=== PATIENT | female | born 1950 | race Caucasian/White ===

== ENCOUNTER → 2017-09-09 | Outpatient (CLI) | payer OTHER, MEDICARE | LOC: HYPER 06:58 | DX: S91.104A Unspecified open wound of right lesser toe(s) without damage to nail, initial encounter (principal); L03.032 Cellulitis of left toe; R60.0 Localized edema; F32.9 Major depressive disorder, single episode, unspecified; Z85.828 Personal history of other malignant neoplasm of skin; Z90.710 Acquired absence of both cervix and uterus; Z87.891 Personal history of nicotine dependence; Z72.89 Other problems related to lifestyle; X58.XXXA Exposure to other specified factors, initial encounter; Y93.89 Activity, other specified; Y92.89 Other specified places as the place of occurrence of the external cause; Y99.8 Other external cause status ==

== ENCOUNTER → 2017-10-14 | Outpatient (CLI) | payer OTHER, MEDICARE | LOC: HYPER 07:09 | DX: L03.032 Cellulitis of left toe (principal); G62.9 Polyneuropathy, unspecified; M81.0 Age-related osteoporosis without current pathological fracture; Z85.44 Personal history of malignant neoplasm of other female genital organs; Z85.41 Personal history of malignant neoplasm of cervix uteri; Z90.710 Acquired absence of both cervix and uterus; Z87.891 Personal history of nicotine dependence; Z72.89 Other problems related to lifestyle ==

== ENCOUNTER → 2017-11-15 | Outpatient (CLI) | payer OTHER, MEDICARE ==
[~2017-11-15] MED LIST: ATIVAN0.5 MG; AUGMENTIN 875-1 EACH PO; CENTRUM SILVER1 EAC4 PO; CYMBALTA30 MG PO; LASIX 40 MG TAB40 M2 PO; MIRAPEX 0.250.25 M1; MOBIC7.5 MG; NEURONTIN 300300 M1; OMEPRAZOLE; OXYCONTIN20 M1; PERCOCET 7.5-31 EACH; PRINIVIL10 MG PO; SYNTHROID100 MCG; VITAMIN B-650 M1; VITAMIN D1000 UNI1; VITAMINC500
== END ==
LOC: HYPER 08:16
DX: S91.105D Unspecified open wound of left lesser toe(s) without damage to nail, subsequent encounter (principal); L03.032 Cellulitis of left toe; R60.0 Localized edema; M81.0 Age-related osteoporosis without current pathological fracture; Z90.710 Acquired absence of both cervix and uterus; Z87.891 Personal history of nicotine dependence; Z72.89 Other problems related to lifestyle; Z85.44 Personal history of malignant neoplasm of other female genital organs; X58.XXXD Exposure to other specified factors, subsequent encounter

== ENCOUNTER → 2017-11-22 | Outpatient (CLI) | payer OTHER, MEDICARE | LOC: HYPER 08:02 | DX: S91.105D Unspecified open wound of left lesser toe(s) without damage to nail, subsequent encounter (principal); M81.0 Age-related osteoporosis without current pathological fracture; G62.9 Polyneuropathy, unspecified; G89.4 Chronic pain syndrome; Z87.891 Personal history of nicotine dependence; Z72.89 Other problems related to lifestyle; Z90.710 Acquired absence of both cervix and uterus; Z85.44 Personal history of malignant neoplasm of other female genital organs; Z85.41 Personal history of malignant neoplasm of cervix uteri; X58.XXXD Exposure to other specified factors, subsequent encounter ==

== ENCOUNTER 2017-11-27 06:41 | Inpatient (IN) | payer OTHER, MEDICARE ==
[~2017-11-27] VITALS: Ht 167.6 cm; Wt 136.1 kg
--- NOTE | ~2017-11-27 | HC ---
[facility] [place] [address] CONSULTATION Name: EMILE FARRIS Room #: 429-P ADM IN M.R.#: [id number] Admission: 11/27/17 Attend Phys: Trevor Vincent DO Discharge: Date of : 54 Report #: [id number] THIS REPORT FOR: //name// CC: Trevor Alcantara REASON FOR CONSULTATION: I was asked to evaluate concerning left foot soft tissue infection in the setting of metastatic cervical cancer and chemotherapy. HISTORY OF PRESENT ILLNESS: The patient was a 67-year old diagnosed with cervical cancer, who has been on chemotherapy for the last month. She has longstanding lymphedema to her lower extremities. She has peripheral neuropathy. The chemotherapy has made these issues worse. She developed an ulcer over the dorsum of her left distal foot and toes after wearing had a new pair of shoes. This has worsened and has failed to improve with oral antibiotic therapy. Outside cultures had revealed enterococcus. She was on penicillin without benefit. No fever, chills or sweats. She has a significant amount of pain in the foot. ALLERGIES: None known. MEDICATIONS: As noted on her MAR, now on vancomycin. PAST MEDICAL HISTORY: Cervical cancer with mets to the abdomen, chest, lungs, status post splenectomy, now on chemotherapy; peripheral neuropathy; lymphedema; hypothyroidism; hypertension and lumbar diskectomy. FAMILY HISTORY: Heart disease, cancer and diabetes. SOCIAL HISTORY: Past smoker. No significant alcohol intake. REVIEW OF SYSTEMS: No cough, sputum, nausea, vomiting or diarrhea. No dysuria. PHYSICAL EXAMINATION: VITAL SIGNS: Afebrile, hemodynamically stable. GENERAL: She is alert and cooperative and pleasant. She was under the influence of pain medication and would drift off to sleep when not confronted. She was obese. She had 3+ lower extremity edema. LUNGS: Clear. HEART: Regular. ABDOMEN: Obese, soft and nontender. EXTREMITIES: The right lower extremity had a multilayer compression wrap in place. The toes were warm with good capillary refill. Left lower extremity had wound over the dorsal aspect of her distal foot and toes. There was serous purulent drainage. There was erythema to the dorsum of her foot, which extended up her pretibial skin. Pulses were adequate. [place] [address] CONSULTATION Name: EMILE FARRIS Room #: [address] [place] [address] IN ..#: [id number] Admission: 11/27/17 Attend Phys: Trevor Vincent DO Discharge: Date of : 54 Report #: [id number] dorsum of her foot. LABORATORY STUDIES: Sodium 143, potassium 3.8, bicarbonate 30 and creatinine 1. Liver function test normal. Hemoglobin 11.7; platelet count 438,000 and white count 15.1. Urinalysis unremarkable. Sedimentation rate 68. Blood cultures are pending. Wound culture pending. 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 Most recent culture has revealed enterococcus. RECOMMENDATIONS: I would recommend continuing wound care and more aggressive elevation along with diuretic therapy. Her antibiotics will be continued with Zosyn and vancomycin, pending repeat culture results. If no evidence of MRSA or pseudomonas, then we will plan to narrow her antibiotic coverage within the next 24-48 hours. <ELECTRONICALLY SIGNED> By: Donny Bloom MD 11/29/17 1500 [id number] Donny Bloom MD /nt
--- NOTE | ~2017-11-27 | HC ---
[facility] [place] [address] CONSULTATION Name: EMILE FARRIS Room #: 429-P ADM IN M.R.#: [id number] Admission: 11/27/17 Attend Phys: Trevor Vincent DO Discharge: Date of : 54 Report #: [id number] THIS REPORT FOR: //name// CC: Trevor Pearce Purvi Quinton DATE OF SERVICE: 11/28/2017 CHIEF COMPLAINT: Left foot ulceration with cellulitis. HISTORY OF PRESENT ILLNESS: This is a 67-year-old female patient with whom we are familiar from outpatient evaluation in the wound center. She has had a history of cervical cancer, status post chemotherapy and radiation and then subsequent metastases to the pancreas and rib. She was seen earlier this fall for some ulceration of her toes. She was treated with topical Silvadene and gradually improved to the point where this was resolved. However, after the first of the year, she developed increasing ulceration, pain, drainage and swelling and she was seen as an outpatient. Cultures demonstrated heavy growth of Enterococcus, sensitive to both penicillin and vancomycin. When I spoke with her last week in the clinic, she preferred to try outpatient therapy first. We put her on penicillin 500 mg q.i.d. After 5 days, it was noted that she was not improving and it was felt hospitalization would be warranted. She has been admitted to the hospital. The wound started with daily dressing changes as well as intravenous vancomycin. The patient states she has continued pain in her foot at this time. PAST MEDICAL HISTORY: Positive for hypertension and cellulitis as well as cervical cancer. She has been getting chemotherapy. Her last round of chemo was the first week of 10/2017. Past medical history once again positive for hypertension, hypothyroidism, lymphedema, cervical cancer with metastases, previous splenectomy and peripheral neuropathy. MEDICATIONS: Include lisinopril, furosemide, levothyroxine, cholecalciferol, Mirapex, Mobic, Percocet, OxyContin, Neurontin, Ativan, omeprazole, pyridoxine, vitamin C, Centrum Silver and Cymbalta. SOCIAL HISTORY: Positive for having smoked cigarettes, one pack per day for 30 years. She quit over 1 year ago. No significant alcohol use. She is and accompanied by her . REVIEW OF SYSTEMS: At this time: CONSTITUTIONAL: The patient denies fever, chills or weight loss. NEUROLOGIC: The patient denies focal weakness, numbness or tingling. EYES: The patient denies visual changes, redness or drainage. ENT: The patient denies earache, nasal [place] [address] CONSULTATION Name: EMILE FARRIS Room #: 429-P [facility] IN M.R.#: [id number] Admission: 11/27/17 Attend Phys: Trevor Vincent DO Discharge: Date of : 54 Report #: [id number] CARDIOVASCULAR: The patient denies chest pain, palpitations or diaphoresis. PULMONARY: The patient denies cough or shortness of breath. GASTROINTESTINAL: The patient denies nausea, vomiting, diarrhea or abdominal pain. ORTHOPEDIC: The patient does complain of pain, swelling and drainage from her left foot, with increasing erythema. Other systems in a 12-point review of systems are negative. PHYSICAL EXAMINATION: VITAL SIGNS: At this time include pulse rate 87, respiratory rate of 18, blood pressure 99/55 and temperature 98.7. GENERAL: This is a chronically ill-appearing female patient, who appears to be in minimal distress. HEENT: Head normocephalic. Nose and throat clear. LUNGS: Clear. ABDOMEN: Soft. Bowel sounds present. EXTREMITIES: Demonstrate palpable pulses. She has 2+ to 3+ edema to both lower extremities. She has significant ulceration to the dorsal aspects and interdigital spaces of the toes of her left foot. There is extensive erythema that extends from her toes on the dorsum of her foot and her distal lower leg. The erythema and ulceration actually seems somewhat worse today than yesterday, even despite intravenous antibiotic therapy. LABORATORY DATA: Sodium 143, potassium 3.9, chloride 107, CO2 of 30, BUN 17, creatinine 1.0 and glucose of 88. White blood cell count 15.1, hemoglobin 11.7, hematocrit of 36.0 and platelet count 438,000. Once again, outpatient cultures demonstrate heavy growth of Enterococcus sensitive to penicillin and vancomycin. CLINICAL IMPRESSION: 1. Ulceration and cellulitis, left lower extremity. 2. Lymphedema, bilateral lower extremities. 3. History of cervical carcinoma with abdominal metastases. RECOMMENDATIONS: At this point in time, we will continue with intravenous vancomycin. Due to the fact that it is not improved with 24 hours of intravenous antibiotic therapy, I have asked Dr. Donny Bloom from Infectious Disease service to see her as well. We will recommend topical Silvadene and morphine with topical lidocaine for pain. We will add pulse lavage if she can tolerate it. All questions have been answered. <ELECTRONICALLY SIGNED> By: Bassam Pearce MD 12/01/17 0810 [id number] Bassam Pearce MD /nt
[2017-11-27 15:40] VITALS: BP 128/68
[2017-11-27 15:54] LABS: HEMOGLOBIN 11.7 gm/dL (12.0-15.0); MCH 29.4 pg (26.0-34.0); MCHC 32.4 g/dL (28.0-37.0); MCV 90.7 fL (80.0-100.0); PLATELET COUNT 438 thou/uL (150-400); RBC 3.96 mil/uL (4.20-5.00); RDW 17.9 % (10.5-14.5); WBC 15.1 thou/uL (4.0-11.0)
[2017-11-27 16:10] LABS: CALCIUM 9.4 mg/dL (8.5-10.1); POTASSIUM 3.8 mmol/L (3.5-5.1)
[2017-11-27 16:14] LABS: ABSOLUTE NEUTROPHILS 11.3 thou/uL (1.4-8.2); ANISOCYTOSIS 1+
[2017-11-27 16:21] LABS: ALBUMIN 3.4 g/dL (3.4-5.0); TOTAL BILIRUBIN 0.2 mg/dL (<0.1-1.0)
[2017-11-27] MEDS ORDERED: PRINIVIL10 MG PO (17:59)
[2017-11-27] MEDS ORDERED: LASIX 40 MG TAB40 M2 PO (18:00)
[2017-11-27] MEDS ORDERED: SYNTHROID100 MCG (18:04)
[2017-11-27] MEDS ORDERED: VITAMIN D1000 UNI1 (18:05)
[2017-11-27] MEDS ORDERED: MIRAPEX 0.250.25 M1 (18:09)
[2017-11-27] MEDS ORDERED: MOBIC7.5 MG (18:10)
[2017-11-27] MEDS ORDERED: PERCOCET 7.5-31 EACH (18:12)
[2017-11-27] MEDS ORDERED: OXYCONTIN20 M1 (18:13)
[2017-11-27] MEDS ORDERED: NEURONTIN 300300 M1 (18:14)
[2017-11-27] MEDS ORDERED: ATIVAN0.5 MG (18:16)
[2017-11-27] MEDS ORDERED: OMEPRAZOLE (18:19)
[2017-11-27] MEDS ORDERED: VITAMIN B-650 M1 (18:20)
[2017-11-27] MEDS ORDERED: VITAMINC500 (18:22)
[2017-11-27] MEDS ORDERED: CENTRUM SILVER1 EAC4 PO (18:24)
[2017-11-27] MEDS ORDERED: CYMBALTA30 MG PO (18:25)
[2017-11-27 20:14] VITALS: BP 123/72
[2017-11-28 01:34] LABS: URINE BILIRUBIN NEGATIVE (Negative); URINE BLOOD NEGATIVE (Negative); URINE CLARITY CLEAR; URINE COLOR YELLOW; URINE GLUCOSE-RANDOM* NEGATIVE (Negative); URINE KETONES NEGATIVE (Negative); URINE LEUKOCYTES NEGATIVE (Negative); URINE NITRITE NEGATIVE (Negative); URINE PROTEIN (DIPSTICK) NEGATIVE (Negative); URINE SPECIFIC GRAVITY 1.025 (1.005-1.035); URINE UROBILINOGEN 0.2 E.U./dl (0.2-1.0)
[2017-11-28 03:32] VITALS: BP 86/45; BP 99/55
[2017-11-28 06:23] LABS: CALCIUM 9.2 mg/dL (8.5-10.1); POTASSIUM 3.8 mmol/L (3.5-5.1)
[2017-11-28 19:45] VITALS: BP 111/55
[2017-11-29 04:07] VITALS: BP 104/54
[2017-11-29 05:36] LABS: ABSOLUTE NEUTROPHILS 7.3 thou/uL (1.4-8.2); BASOPHILS 0.9 % (0.0-2.0); EOSINOPHILS 7.1 % (0.0-3.0); HEMATOCRIT 34.1 % (37.0-47.0); HEMOGLOBIN 10.9 gm/dL (12.0-15.0); LYMPHOCYTES 18.7 % (24.0-44.0); MCH 29.3 pg (26.0-34.0); MCHC 32.1 g/dL (28.0-37.0); MCV 91.5 fL (80.0-100.0); MONOCYTES 8.1 % (1.0-8.0); PLATELET COUNT 409 thou/uL (150-400); POLYS 65.2 % (36.0-66.0); RBC 3.73 mil/uL (4.20-5.00); RDW 17.9 % (10.5-14.5); WBC 11.1 thou/uL (4.0-11.0)
[2017-11-29 05:53] LABS: CALCIUM 9.7 mg/dL (8.5-10.1); CREATININE 1.1 mg/dL (0.6-1.0); POTASSIUM 4.1 mmol/L (3.5-5.1)
[2017-11-29 08:30] VITALS: BP 109/53
[2017-11-29 15:50] VITALS: BP 98/44
[2017-11-29 21:21] VITALS: BP 111/54
[2017-11-30 03:21] VITALS: BP 118/68
[2017-11-30 03:36] LABS: ABSOLUTE NEUTROPHILS 8.2 thou/uL (1.4-8.2); BASOPHILS 1.1 % (0.0-2.0); EOSINOPHILS 5.8 % (0.0-3.0); HEMATOCRIT 31.7 % (37.0-47.0); HEMOGLOBIN 10.4 gm/dL (12.0-15.0); LYMPHOCYTES 15.2 % (24.0-44.0); MCH 29.6 pg (26.0-34.0); MCHC 32.7 g/dL (28.0-37.0); MCV 90.5 fL (80.0-100.0); MONOCYTES 9.5 % (1.0-8.0); PLATELET COUNT 395 thou/uL (150-400); POLYS 68.4 % (36.0-66.0); RBC 3.51 mil/uL (4.20-5.00); RDW 17.4 % (10.5-14.5); WBC 11.9 thou/uL (4.0-11.0)
[2017-11-30 03:48] LABS: CALCIUM 8.9 mg/dL (8.5-10.1); CREATININE 1.1 mg/dL (0.6-1.0); POTASSIUM 3.8 mmol/L (3.5-5.1)
[2017-11-30 07:40] VITALS: BP 104/47
[2017-11-30 15:10] VITALS: BP 118/61
[2017-11-30 20:30] VITALS: BP 124/78
[2017-12-01 04:30] VITALS: BP 127/72
[2017-12-01 08:00] VITALS: BP 121/67
[2017-12-01 16:00] VITALS: BP 122/67
[2017-12-01 20:25] VITALS: BP 124/71
[2017-12-02 04:33] VITALS: BP 117/60
[2017-12-02 07:18] LABS: ABSOLUTE NEUTROPHILS 8.2 thou/uL (1.4-8.2); BASOPHILS 1.4 % (0.0-2.0); EOSINOPHILS 6.8 % (0.0-3.0); HEMATOCRIT 33.1 % (37.0-47.0); HEMOGLOBIN 10.5 gm/dL (12.0-15.0); LYMPHOCYTES 14.5 % (24.0-44.0); MCH 29.1 pg (26.0-34.0); MCHC 31.7 g/dL (28.0-37.0); MCV 91.7 fL (80.0-100.0); MONOCYTES 8.4 % (1.0-8.0); PLATELET COUNT 413 thou/uL (150-400); POLYS 68.9 % (36.0-66.0); RBC 3.61 mil/uL (4.20-5.00); RDW 17.7 % (10.5-14.5); WBC 11.9 thou/uL (4.0-11.0)
[2017-12-02 07:43] LABS: CALCIUM 9.2 mg/dL (8.5-10.1); CREATININE 1.1 mg/dL (0.6-1.0); POTASSIUM 3.5 mmol/L (3.5-5.1)
[2017-12-02 07:55] VITALS: BP 102/59
[2017-12-02 15:40] VITALS: BP 113/48
[2017-12-02 20:34] VITALS: BP 130/76
[2017-12-02 21:45] VITALS: BP 130/76
[2017-12-03 04:39] VITALS: BP 120/62
[2017-12-03 05:55] LABS: ABSOLUTE NEUTROPHILS 9.4 thou/uL (1.4-8.2); BASOPHILS 0.9 % (0.0-2.0); EOSINOPHILS 5.6 % (0.0-3.0); HEMATOCRIT 33.6 % (37.0-47.0); HEMOGLOBIN 10.8 gm/dL (12.0-15.0); LYMPHOCYTES 14.7 % (24.0-44.0); MCH 29.6 pg (26.0-34.0); MCHC 32.1 g/dL (28.0-37.0); MONOCYTES 7.1 % (1.0-8.0); PLATELET COUNT 432 thou/uL (150-400); POLYS 71.7 % (36.0-66.0); RBC 3.65 mil/uL (4.20-5.00); RDW 17.7 % (10.5-14.5); WBC 13.1 thou/uL (4.0-11.0)
[2017-12-03 08:30] VITALS: BP 126/67
[2017-12-03] MEDS ORDERED: AUGMENTIN 875-1 EACH PO (08:44)
[2017-12-03 09:01] VITALS: BP 120/62
[2017-12-03 10:50] VITALS: BP 120/62
[2017-12-03 13:33] VITALS: BP 120/62
[2017-12-03 14:34] VITALS: BP 120/62
== END 2017-12-03 14:45 | disposition home health service (06) | DRG 872 ==
LOC: HYPER 06:41 → 4E 15:02 → ENTRNSPT 12-03 14:32 → EDTRNSPTSTS 12-03 14:37 → 4E 12-03 14:45
PROVIDERS: Family Medicine; Nurse Practitioner
DX: A41.9 Sepsis, unspecified organism (principal); L03.116 Cellulitis of left lower limb; Z68.42 Body mass index [BMI] 45.0-49.9, adult; L97.529 Non-pressure chronic ulcer of other part of left foot with unspecified severity; E03.9 Hypothyroidism, unspecified; I10 Essential (primary) hypertension; E66.9 Obesity, unspecified; G62.9 Polyneuropathy, unspecified; G89.29 Other chronic pain; M54.9 Dorsalgia, unspecified; R91.1 Solitary pulmonary nodule; B35.3 Tinea pedis; B95.2 Enterococcus as the cause of diseases classified elsewhere; Z90.710 Acquired absence of both cervix and uterus; Z87.891 Personal history of nicotine dependence; Z79.899 Other long term (current) drug therapy; Z85.41 Personal history of malignant neoplasm of cervix uteri; Z92.21 Personal history of antineoplastic chemotherapy; Z90.81 Acquired absence of spleen; Z82.49 Family history of ischemic heart disease and other diseases of the circulatory system; Z83.3 Family history of diabetes mellitus; Z80.8 Family history of malignant neoplasm of other organs or systems
CPT/HCPCS: 10783

== ENCOUNTER → 2017-12-09 | Outpatient (CLI) | payer OTHER, MEDICARE | LOC: HYPER 06:59 | DX: L03.032 Cellulitis of left toe (principal); G62.9 Polyneuropathy, unspecified; M19.90 Unspecified osteoarthritis, unspecified site; Z87.891 Personal history of nicotine dependence; Z72.89 Other problems related to lifestyle; Z90.710 Acquired absence of both cervix and uterus; Z85.44 Personal history of malignant neoplasm of other female genital organs; Z85.89 Personal history of malignant neoplasm of other organs and systems ==

== ENCOUNTER → 2017-12-23 | Outpatient (CLI) | payer OTHER, MEDICARE | LOC: HYPER 06:45 | DX: S91.105D Unspecified open wound of left lesser toe(s) without damage to nail, subsequent encounter (principal); R60.0 Localized edema; L03.032 Cellulitis of left toe; M81.0 Age-related osteoporosis without current pathological fracture; Z85.828 Personal history of other malignant neoplasm of skin; Z90.710 Acquired absence of both cervix and uterus; Z87.891 Personal history of nicotine dependence; Z72.89 Other problems related to lifestyle; X58.XXXD Exposure to other specified factors, subsequent encounter ==

== ENCOUNTER → 2017-12-31 | Outpatient (CLI) | payer OTHER, MEDICARE | LOC: HYPER 06:54 | DX: S91.105D Unspecified open wound of left lesser toe(s) without damage to nail, subsequent encounter (principal); M81.0 Age-related osteoporosis without current pathological fracture; G62.9 Polyneuropathy, unspecified; Z85.89 Personal history of malignant neoplasm of other organs and systems; Z87.891 Personal history of nicotine dependence; Z72.89 Other problems related to lifestyle; Z90.710 Acquired absence of both cervix and uterus; Z85.44 Personal history of malignant neoplasm of other female genital organs; X58.XXXD Exposure to other specified factors, subsequent encounter ==

== ENCOUNTER → 2018-01-13 | Outpatient (CLI) | payer OTHER, MEDICARE | LOC: HYPER 06:54 | DX: S91.105D Unspecified open wound of left lesser toe(s) without damage to nail, subsequent encounter (principal); M81.0 Age-related osteoporosis without current pathological fracture; G62.9 Polyneuropathy, unspecified; G89.4 Chronic pain syndrome; Z87.891 Personal history of nicotine dependence; Z72.89 Other problems related to lifestyle; Z85.41 Personal history of malignant neoplasm of cervix uteri; Z90.710 Acquired absence of both cervix and uterus; X58.XXXD Exposure to other specified factors, subsequent encounter ==

== ENCOUNTER → 2018-01-27 | Outpatient (CLI) | payer OTHER, MEDICARE | LOC: HYPER 06:47 | DX: S91.105D Unspecified open wound of left lesser toe(s) without damage to nail, subsequent encounter (principal); L03.032 Cellulitis of left toe; R60.0 Localized edema; Z85.44 Personal history of malignant neoplasm of other female genital organs; Z85.828 Personal history of other malignant neoplasm of skin; Z90.710 Acquired absence of both cervix and uterus; Z87.891 Personal history of nicotine dependence; Z72.89 Other problems related to lifestyle; X58.XXXD Exposure to other specified factors, subsequent encounter ==

== ENCOUNTER → 2018-02-10 | Outpatient (CLI) | payer OTHER, MEDICARE | LOC: HYPER 06:59 | DX: S91.105D Unspecified open wound of left lesser toe(s) without damage to nail, subsequent encounter (principal); M81.0 Age-related osteoporosis without current pathological fracture; G62.9 Polyneuropathy, unspecified; Z90.710 Acquired absence of both cervix and uterus; Z85.44 Personal history of malignant neoplasm of other female genital organs; Z87.891 Personal history of nicotine dependence; X58.XXXD Exposure to other specified factors, subsequent encounter ==

== ENCOUNTER → 2018-02-24 | Outpatient (CLI) | payer OTHER, MEDICARE | LOC: HYPER 06:53 | DX: S91.105D Unspecified open wound of left lesser toe(s) without damage to nail, subsequent encounter (principal); L03.032 Cellulitis of left toe; R60.0 Localized edema; Z85.44 Personal history of malignant neoplasm of other female genital organs; Z85.828 Personal history of other malignant neoplasm of skin; Z90.710 Acquired absence of both cervix and uterus; Z87.891 Personal history of nicotine dependence; X58.XXXD Exposure to other specified factors, subsequent encounter ==

== ENCOUNTER → 2018-03-10 | Outpatient (CLI) | payer OTHER, MEDICARE | LOC: HYPER 03-06 10:59 | DX: L03.032 Cellulitis of left toe (principal); S91.105D Unspecified open wound of left lesser toe(s) without damage to nail, subsequent encounter; M81.0 Age-related osteoporosis without current pathological fracture; G62.9 Polyneuropathy, unspecified; Z90.710 Acquired absence of both cervix and uterus; Z87.891 Personal history of nicotine dependence; Z85.44 Personal history of malignant neoplasm of other female genital organs; Z85.89 Personal history of malignant neoplasm of other organs and systems; X58.XXXD Exposure to other specified factors, subsequent encounter ==

== ENCOUNTER → 2018-03-24 | Outpatient (CLI) | payer OTHER, MEDICARE | LOC: HYPER 07:00 | DX: S91.105D Unspecified open wound of left lesser toe(s) without damage to nail, subsequent encounter (principal); L03.032 Cellulitis of left toe; R60.0 Localized edema; L02.92 Furuncle, unspecified; Z85.41 Personal history of malignant neoplasm of cervix uteri; Z90.710 Acquired absence of both cervix and uterus; Z87.891 Personal history of nicotine dependence; X58.XXXD Exposure to other specified factors, subsequent encounter ==

== ENCOUNTER → 2018-04-28 | Outpatient (CLI) | payer OTHER, MEDICARE | LOC: HYPER 06:51 | DX: S91.105D Unspecified open wound of left lesser toe(s) without damage to nail, subsequent encounter (principal); L03.032 Cellulitis of left toe; L02.92 Furuncle, unspecified; M81.0 Age-related osteoporosis without current pathological fracture; G62.9 Polyneuropathy, unspecified; G89.4 Chronic pain syndrome; Z90.710 Acquired absence of both cervix and uterus; Z85.89 Personal history of malignant neoplasm of other organs and systems; Z87.891 Personal history of nicotine dependence; X58.XXXD Exposure to other specified factors, subsequent encounter ==

== ENCOUNTER → 2018-05-26 | Outpatient (CLI) | payer OTHER, MEDICARE | LOC: HYPER 06:52 | DX: L03.032 Cellulitis of left toe (principal); L02.92 Furuncle, unspecified; G62.9 Polyneuropathy, unspecified; M81.0 Age-related osteoporosis without current pathological fracture; Z90.710 Acquired absence of both cervix and uterus; Z87.891 Personal history of nicotine dependence; Z85.41 Personal history of malignant neoplasm of cervix uteri ==

== ENCOUNTER → 2018-06-23 | Outpatient (CLI) | payer OTHER, MEDICARE | LOC: HYPER 06:34 | DX: S91.105D Unspecified open wound of left lesser toe(s) without damage to nail, subsequent encounter (principal); L03.032 Cellulitis of left toe; L02.92 Furuncle, unspecified; M81.0 Age-related osteoporosis without current pathological fracture; G89.4 Chronic pain syndrome; G62.9 Polyneuropathy, unspecified; Z85.41 Personal history of malignant neoplasm of cervix uteri; Z90.710 Acquired absence of both cervix and uterus; Z87.891 Personal history of nicotine dependence; X58.XXXD Exposure to other specified factors, subsequent encounter ==

== ENCOUNTER → 2018-09-01 | Outpatient (CLI) | payer OTHER, MEDICARE | LOC: HYPER 06:55 | DX: L03.116 Cellulitis of left lower limb (principal); L03.032 Cellulitis of left toe; L02.92 Furuncle, unspecified; G90.09 Other idiopathic peripheral autonomic neuropathy; G89.4 Chronic pain syndrome; K21.9 Gastro-esophageal reflux disease without esophagitis; M81.0 Age-related osteoporosis without current pathological fracture; F32.9 Major depressive disorder, single episode, unspecified; Z85.41 Personal history of malignant neoplasm of cervix uteri; Z87.891 Personal history of nicotine dependence ==

== ENCOUNTER → 2018-10-23 | Outpatient (CLI) | payer OTHER, MEDICARE | LOC: HYPER 09-26 11:06 | DX: L03.032 Cellulitis of left toe (principal); L02.92 Furuncle, unspecified; G90.09 Other idiopathic peripheral autonomic neuropathy; G89.4 Chronic pain syndrome; I89.0 Lymphedema, not elsewhere classified; K21.9 Gastro-esophageal reflux disease without esophagitis; M81.0 Age-related osteoporosis without current pathological fracture; F32.9 Major depressive disorder, single episode, unspecified; Z85.41 Personal history of malignant neoplasm of cervix uteri; Z87.891 Personal history of nicotine dependence ==

== ENCOUNTER → 2018-11-28 | Outpatient (CLI) | payer OTHER, MEDICARE | LOC: HYPER 07:55 | DX: L03.116 Cellulitis of left lower limb (principal); L03.032 Cellulitis of left toe; L02.92 Furuncle, unspecified; G89.4 Chronic pain syndrome; G90.09 Other idiopathic peripheral autonomic neuropathy; I89.0 Lymphedema, not elsewhere classified; K21.9 Gastro-esophageal reflux disease without esophagitis; M81.0 Age-related osteoporosis without current pathological fracture; F32.9 Major depressive disorder, single episode, unspecified; Z87.891 Personal history of nicotine dependence; Z85.41 Personal history of malignant neoplasm of cervix uteri ==

== ENCOUNTER → 2018-12-08 | Outpatient (CLI) | payer OTHER, MEDICARE ==
[~2018-12-08] VITALS: Ht 167.6 cm; Wt 136.1 kg
[~2018-12-08] MED LIST changes: +GENTLE LAXATIVE5 M1 PO; +HYDROCODONE-ACE15 ML PO; +HYDROCODONE-AP1 EA11 PO; +LIDOCAINE35.44 GM TOP; +LYRICA 75 MG CA75 MG PO; +MORPHINE; +MORPHINE SULFAT15 M3 PO; +MS CONTIN15 MG PO; +OMEPRAZOLE 20 M20 M1 PO; +SANTYL OINTMENT30 G1 TOP; +SILVADENE; +STOOL SOFTENER100 MG PO; +TEMOVATE30 GM TOP; +UNICOMPLEX M TA1 TA1 PO; +VASHE WOUND S1000 ML TOP; +VITAMIN B-650 M1 PO; +VITAMIN D5000 UNIT PO; +VITAMINC500 PO
--- NOTE | ~2018-12-08 | HPC ---
[facility] [place] [address] [place] [address] PAIN MANAGEMENT CONSULTATION Name: EMILE FARRIS Room #: REG [facility] Malick.#: [id number] Admission: 12/08/18 Attend Phys: Dwight Jackson MD Discharge: Date of : 54 Report #: [id number] THIS REPORT FOR: //name// CC: PERICO Jackson DATE OF SERVICE: 12/08/2018 Followup visit for chronic pain, history of cervical cancer with abdominal and pelvic metastasis per the patient and . HISTORY OF PRESENT ILLNESS: I am seeing the patient to provide medication management of chronic intractable pain. This was originally established at the [facility] with my partner, Dr. Ra Leigh. I am now seeing her for the first time at [facility] where our medication management will now reside. She complains of pain at level 5-6 in her low back and bilateral pain in her feet due to a collapsed ankle and neuropathy. Her pain is worse when she is on her feet too long or as she walks. She is morbidly obese. She has wounds on her feet, which are followed by Dr. Bassam Pearce. She complains that her pain today is constant, periodic, shooting and aching. The medications that we provide for her she says are critical to allowing her to function at even a modest level during the day. She is on several centrally acting medications, and I have been concerned over time that she has some memory issues. We have worked to try and get her medication properly prescribed for that that she is using. It appeared that she was provided more medications than she was using. She has a nurse that comes to the house weekly. She says the nurse told her that she should take more medication. We spent some time today reviewing whether or not that recommendation was valid. The patient does feel that she is a bit under medicated and her pain is more severe than it has been. She had previously been on 3 MS Contin 15 mg tablets per day, and I dropped it to 2 based upon her usage. With the patient and her 's understanding that we will watch closely, I have agreed to increase her dose back up to 3 tablets per day. She rarely uses any breakthrough medication, but has had some hydrocodone 7.5/325 tablets on hand. I have agreed to allow her to continue on that as well. She has had some issues in the past with renal insufficiency. She is on meloxicam 7.5 mg once daily, and I am concerned about having her remain on any form of nonsteroidal anti-inflammatory drug. I do not have all the history, so [facility] [address] [place] [address] PAIN MANAGEMENT CONSULTATION Name: EMILE FARRIS Room #: REG ERNST Flores#: [id number] Admission: 12/08/18 Attend Phys: Dwight Jackson MD Discharge: Date of : 54 Report #: [id number] I am going to leave that to Dr. Buckley to sort out. She is also on Lyrica 75 mg 2 in the morning and 2 in the evening for a total of 300 mg per day. She is on pramipexole for restless leg syndrome and Cymbalta for depression, anxiety and pain. OTHER MEDICATIONS: Include lisinopril, Lasix, levothyroxine, vitamins B, D and C, another multivitamin and kgxw-bgw-jdipsoz gentle stool softeners and laxatives which worked effectively. She says that she has 2 bowel movements per day. PHYSICAL EXAMINATION: GENERAL: She is morbidly obese. VITAL SIGNS: 5 feet 6 inches, 300 pounds, BMI 48.4, blood pressure 140/76, heart rate 99. Pain intensity is 6/10. CHEST: Clear. CARDIAC: Rhythm is regular. She is able to move from sitting to standing position, walks with a bit of an unsteady gait and is a fall risk, using a walker. The patient has a history of hypertension, is on an opioid agreement signed in November here at our clinic and previously at [facility]. She is at low risk for addiction with the ORT score of 1. She denies tobacco, does occasionally drink a glass of alcohol per week. IMPRESSION: 1. History of cervical cancer, now with metastatic, stable, masses in the abdomen and pelvis. These are followed by her oncologist, Dr. Leigh, at [facility]. 2. Chronic low back pain. 3. Chronic bilateral foot pain with neuropathy. 4. Open wound on the left foot between the metatarsal. Pressure sore? Followed by Dr. Pearce. 5. Mild memory issues, which we will monitor carefully. I have discussed with her . PLAN: Renew medication. , MSER 15 mg t.i.d., hydrocodone 7.5/325 tablets 1 tablet b.i.d. Followup visit in the pain clinic is scheduled for 3 months. By: [id number] Dwight Jackson MD /nt
[2018-12-08 10:11] VITALS: BP 140/76
--- NOTE | 2018-12-08 10:33 | NUR ---
Pain Clinic Assessment: 1. History of Osteoarthritis: Left Lower Extremity low back History of Rheumatoid Arthritis: Not Applicable 2. Height: 5 ft. 6 in. 167.6 cm. Weight: 300.0 lb. oz. 136.080 kg. Patient's BMI: 48.4 3. Vital Signs: BP: 140/76 Pulse: 99 Resp: 20 Temp: 02 Sat: 100 ECG Mon: 4. Pain Intensity: 6 5. Fall Risk: Dizziness: N Needs help standing or walking: Y Fallen in the last 3 months: N Fall risk comments: 6. Patient on Blood Thinner: None 7. History of Hypertension: Y 8. Opioid Therapy greater than 6 weeks: Y Opiate Contract Signed: 12/08/18 9. Risk Assessment Tool Provided: low-1 10. Functional Assessment Tool: 11. Recreational Drug Use: Never Drug Type: Tobacco Use: Former Smoker Tobacco Type: Amount or Packs/day: How Many Years: Alcohol Use: Yes Frequency: Weekly Quant: 2
== END ==
LOC: PAIN 07:14
DX: Z08 Encounter for follow-up examination after completed treatment for malignant neoplasm (principal); M54.5 Low back pain; G89.29 Other chronic pain; G62.9 Polyneuropathy, unspecified; R41.3 Other amnesia; Z85.41 Personal history of malignant neoplasm of cervix uteri; Z85.53 Personal history of malignant neoplasm of renal pelvis; Z85.89 Personal history of malignant neoplasm of other organs and systems; Z79.899 Other long term (current) drug therapy

== ENCOUNTER → 2018-12-22 | Outpatient (CLI) | payer OTHER, MEDICARE | LOC: HYPER 07:17 | DX: L03.032 Cellulitis of left toe (principal); L03.116 Cellulitis of left lower limb; S81.801A Unspecified open wound, right lower leg, initial encounter; G62.9 Polyneuropathy, unspecified; G89.4 Chronic pain syndrome; G90.09 Other idiopathic peripheral autonomic neuropathy; L02.92 Furuncle, unspecified; K21.9 Gastro-esophageal reflux disease without esophagitis; M81.0 Age-related osteoporosis without current pathological fracture; F32.9 Major depressive disorder, single episode, unspecified; Z87.891 Personal history of nicotine dependence; Z85.41 Personal history of malignant neoplasm of cervix uteri; X58.XXXA Exposure to other specified factors, initial encounter; Y93.89 Activity, other specified; Y92.89 Other specified places as the place of occurrence of the external cause; Y99.8 Other external cause status ==

== ENCOUNTER → 2018-12-29 | Outpatient (CLI) | payer OTHER, MEDICARE | LOC: HYPER 06:50 | DX: L03.032 Cellulitis of left toe (principal); L03.116 Cellulitis of left lower limb; S81.801D Unspecified open wound, right lower leg, subsequent encounter; L02.92 Furuncle, unspecified; G62.9 Polyneuropathy, unspecified; G89.4 Chronic pain syndrome; G90.09 Other idiopathic peripheral autonomic neuropathy; K21.9 Gastro-esophageal reflux disease without esophagitis; M81.0 Age-related osteoporosis without current pathological fracture; F32.9 Major depressive disorder, single episode, unspecified; Z87.891 Personal history of nicotine dependence; Z85.41 Personal history of malignant neoplasm of cervix uteri; X58.XXXD Exposure to other specified factors, subsequent encounter ==

== ENCOUNTER → 2019-01-13 | Outpatient (CLI) | payer OTHER, MEDICARE | LOC: HYPER 01-07 10:18 | DX: L03.115 Cellulitis of right lower limb (principal); L02.92 Furuncle, unspecified; G90.09 Other idiopathic peripheral autonomic neuropathy; G89.4 Chronic pain syndrome; E66.01 Morbid (severe) obesity due to excess calories; I89.0 Lymphedema, not elsewhere classified; K21.9 Gastro-esophageal reflux disease without esophagitis; M81.0 Age-related osteoporosis without current pathological fracture; F32.9 Major depressive disorder, single episode, unspecified; Z68.42 Body mass index [BMI] 45.0-49.9, adult; Z87.891 Personal history of nicotine dependence; Z85.41 Personal history of malignant neoplasm of cervix uteri ==

== ENCOUNTER → 2019-01-30 | Outpatient (CLI) | payer OTHER, MEDICARE ==
[~2019-01-30] MED LIST changes: +MORPHINE SULFAT15 MG PO
== END ==
LOC: HYPER 08:16
DX: S91.301D Unspecified open wound, right foot, subsequent encounter (principal); S91.105D Unspecified open wound of left lesser toe(s) without damage to nail, subsequent encounter; L02.92 Furuncle, unspecified; I89.0 Lymphedema, not elsewhere classified; E66.01 Morbid (severe) obesity due to excess calories; M81.0 Age-related osteoporosis without current pathological fracture; G90.09 Other idiopathic peripheral autonomic neuropathy; G62.9 Polyneuropathy, unspecified; G89.4 Chronic pain syndrome; F32.9 Major depressive disorder, single episode, unspecified; Z87.891 Personal history of nicotine dependence; Z68.42 Body mass index [BMI] 45.0-49.9, adult; Z85.41 Personal history of malignant neoplasm of cervix uteri; X58.XXXD Exposure to other specified factors, subsequent encounter

== ENCOUNTER → 2019-02-02 | Outpatient (CLI) | payer OTHER, MEDICARE ==
[~2019-02-02] VITALS: Ht 167.6 cm; Wt 163.7 kg
[2019-02-02 10:34] VITALS: BP 128/68
--- NOTE | 2019-02-02 10:40 | NUR ---
Pain Clinic Assessment: 1. History of Osteoarthritis: Left Lower Extremity low back History of Rheumatoid Arthritis: Not Applicable 2. Height: 5 ft. 6 in. 167.6 cm. Weight: 361.0 lb. oz. 163.749 kg. Patient's BMI: 58.3 3. Vital Signs: BP: 128/68 Pulse: 92 Resp: 18 Temp: 02 Sat: 95 ECG Mon: 4. Pain Intensity: 6 5. Fall Risk: Dizziness: N Needs help standing or walking: N Fallen in the last 3 months: N Fall risk comments: 6. Patient on Blood Thinner: None 7. History of Hypertension: Y 8. Opioid Therapy greater than 6 weeks: Y Opiate Contract Signed: 12/08/18 9. Risk Assessment Tool Provided: low-1 10. Functional Assessment Tool: 11. Recreational Drug Use: Never Drug Type: Tobacco Use: Former Smoker Tobacco Type: Amount or Packs/day: How Many Years: Alcohol Use: Yes Frequency: Quant:
--- NOTE | 2019-02-03 08:38 | HPC ---
[facility] [place] [address] PAIN MANAGEMENT CONSULTATION Name: BRENTONEMILETRACY MARSH [facility] [id number] Admission: 02/02/19 ������������������ Attend Phys: Hermila Mccall Discharge: ������������������ Date of : 54 Report #: [id number] THIS REPORT FOR: //name// CC: Hermila Schultzfer Quinton DATE OF SERVICE: 02/02/2019 CHIEF COMPLAINT: Chronic pain, history of cervical cancer with abdominal and pelvic metastases. HISTORY OF PRESENT ILLNESS: The patient returns to the pain clinic today for refill of her medications. She is a longstanding patient of Dr. Ra Leigh and then now Dr. Dwight Jackson. The patient has been stable on her MS Contin. She tells me that her pain score is 6/10, which is an average pain score for her low back pain and her right ankle pain. She tells me that her wound is slowly healing on her right leg. She is pleased with the progress that she has been making with the wound center. She does continue to see them though not as frequently. The patient tells me her pain is worse when she is walking or being on her feet too long. She does use a walker and does have a brace also on her left ankle. Her is with her today and they tell me that she also needs Lyrica refilled, which she had not needed the last time she was here. Last time that was filled when she was seen at [facility]. The patient denies any constipation. She uses giab-uxe-zacnbdx Colace, which is very helpful and does not feel that she needs any meloxicam refilled today either. She uses that on as needed basis. CURRENT ALLERGIES: AUGMENTIN. MEDICATIONS: MS Contin 15 mg 3 times a day, hydrocodone 7.5 1-2 tablets a day, Temovate cream as needed, Colace b.i.d., multivitamin daily, ascorbic acid 1000 mg daily, vitamin D3 daily, vitamin B6 daily, Cymbalta 30 mg daily, omeprazole 20 mg daily, Lyrica 150 mg b.i.d., multivitamin daily, vitamin C daily, meloxicam b.i.d. p.r.n., Mirapex 0.25 mg t.i.d., vitamin D 1000 units, Synthroid 100 mcg a day, Lasix 40 mg daily and Prinivil 10 mg daily. PQRS: 1. She has left lower extremity, osteoarthritis and arthritis of her lower back. Denies rheumatoid arthritis. 2. Height is 5 feet 6 inches, weight is 361. BMI is 58. 3. Vital Signs: Blood pressure 128/68, pulse is 92, respirations 18, oxygen sat is 95. 4. Pain score is 6/10. 5. Fall risk. Denies dizziness. Uses a walker today and has not fallen in the last 3 months. 6. The patient is not on any blood thinners [place] [address] PAIN MANAGEMENT CONSULTATION Name: EMILE FARRIS Room #: REG ERNST Flores#: [id number] Admission: 02/02/19 ������������������ Attend Phys: Hermila Mccall Discharge: ������������������ Date of : 54 Report #: [id number] hypertension. 7. Opiate therapy is greater than 6 weeks, therefore, an opioid signed contract is on the chart. 8. Risk assessment tool is low. Her functional assessment is 38/70. 9. Recreational drug use she denies. She is a former smoker and occasionally drinks alcohol. We did check the prescription monitoring system. The patient is filling appropriately from Dr. Dwight Jackson and is due for a refill today. We will check a buccal drug screen on the next visit since the patient does not have one on our chart since transferring from [facility]. PHYSICAL EXAMINATION: GENERAL: This is alert and orientated 68-year-old, appears her stated age, is morbidly obese. HEENT: Normocephalic, atraumatic. Extraocular muscles are intact. Mucous membranes are moist. EXTREMITIES: She has difficulty moving from sitting to standing position. She has weakness in her lower extremities. She does have a left foot brace on with an Govind wrap around her left ankle. I did not unwrap this today. The and the patient tell me that it is healing quite nicely. The patient does walk with a slightly unsteady gait and uses a walker. ASSESSMENT: 1. History of cervical cancer, now with metastasis, which is stable. 2. Chronic low back pain. 3. Chronic bilateral foot pain with neuropathy. 4. Open wound on the left foot followed by the wound center. 5. Mild memory issues, though seems to answer appropriate questions today. We reviewed the fact that opiate medications are being used to provide analgesia adequate to support activities of daily living, not attempting to achieve a specific pain score on the 0-10 Visual Analog Scale. The current opiate medications are providing sufficient analgesia to allow the patient to participate in activities of daily living. The patient is not exhibiting any aberrant behavior suggestive of drug diversion. The patient is not having any adverse reactions to medications. The patient is not suffering from daytime somnolence or mental acuity changes. The patient is managing opiate-induced constipation with appropriate uqas-jyf-ckmkysr agents and dietary considerations. The patient was counseled on concern for caution with operating a motor vehicle while using opiate medications. A physical exam was performed and the patient's functional status was evaluated. All patients with back pain were advised against the bed rest greater than 4 days and were advised to return to normal activities. Pain score assessment was noted and the treatment plan was reviewed with the patient. All current [facility] [address] [place] [address] PAIN MANAGEMENT CONSULTATION Name: SHARONA FARRISTRACY MARSH Room #: [facility] [id number] Admission: 02/02/19 ������������������ Attend Phys: Hermila Mccall Discharge: ������������������ Date of : 54 Report #: [id number] medications, both prescribed and OTC were reviewed and reconciled on the electronic medical record. Tobacco screening was accomplished and smoking cessation was advised when indicated. BMI was noted and diet/exercise modification was recommended for all patients following outside normal parameters. I reviewed with the patient today their responsibilities to safeguard prescription medications, reviewed their responsibility to utilize medications only as prescribed by the physician. They are to seek and receive pain medications only from 1 physician group ( [facility]). They are to use 1 pharmacy and keep the clinic informed if they change pharmacies. Their responsibilities include making followup visits in a timely fashion and to avoid abrupt discontinuation of medication usage. Their responsibilities further include bringing their medications (bottles from the pharmacy with residual pills) to the visit for possible confirmation of pill counts and the patient understands it is their responsibility to submit to random drug screens to ensure both that the medications prescribed are present, and that no other controlled substances are present. All prescriptions provided today were generated electronically. PLAN: 1. We discussed treatment options with the patient today. The patient tells me that she has decreased her hydrocodone use slightly requiring most days only 1 hydrocodone breakthrough pain pill. When her pain is more significant she may take two on that day. Therefore, we will decrease her hydrocodone from 7.5 b.i.d. number 60 to 45 tablets will be given for today and 4 weeks. 2. Morphine 15 mg 3 times a day will be continued, quantity 90 for today release and 4-week release. MME is 52-60 daily. 3. The patient tells me that she has not been taking meloxicam on a daily basis. She has had some renal issues in the past, so therefore she has decreased her use. No refill is needed of that medication today. I informed them that if need be, we can call that medicine and if she finds that she needs another refill before her next appointment. 4. Lyrica 75 mg 2 tablets b.i.d. with 2 additional refills were given today. 5. We will check a buccal drug screen on the patient at next visit as she is a transfer from [facility] and we do not have one on the chart. Dr. Jackson did see the patient today and collaborated care. ��������������������������������������������� <ELECTRONICALLY SIGNED> ���������������������������������������� By: Hermila Mccall ��������������������������������������������� 02/03/19 0838 [id number] Hermila Mccall /nt
== END ==
LOC: PAIN 07:01
DX: M54.5 Low back pain (principal); G89.29 Other chronic pain; M79.672 Pain in left foot; M79.671 Pain in right foot; R41.3 Other amnesia; Z85.41 Personal history of malignant neoplasm of cervix uteri; Z88.8 Allergy status to other drugs, medicaments and biological substances; Z79.899 Other long term (current) drug therapy

== ENCOUNTER → 2019-02-27 | Outpatient (CLI) | payer OTHER, MEDICARE | LOC: HYPER 07:42 | DX: L03.115 Cellulitis of right lower limb (principal); L03.032 Cellulitis of left toe; L02.92 Furuncle, unspecified; I89.0 Lymphedema, not elsewhere classified; E66.01 Morbid (severe) obesity due to excess calories; M81.0 Age-related osteoporosis without current pathological fracture; G89.29 Other chronic pain; G90.09 Other idiopathic peripheral autonomic neuropathy; F32.9 Major depressive disorder, single episode, unspecified; Z87.891 Personal history of nicotine dependence; Z68.42 Body mass index [BMI] 45.0-49.9, adult; Z85.9 Personal history of malignant neoplasm, unspecified ==

== ENCOUNTER → 2019-04-06 | Outpatient (CLI) | payer OTHER, MEDICARE | LOC: HYPER 06:37 | DX: L03.115 Cellulitis of right lower limb (principal); L03.032 Cellulitis of left toe; L02.92 Furuncle, unspecified; I89.0 Lymphedema, not elsewhere classified; E66.01 Morbid (severe) obesity due to excess calories; M81.0 Age-related osteoporosis without current pathological fracture; G89.29 Other chronic pain; R60.0 Localized edema; G90.09 Other idiopathic peripheral autonomic neuropathy; F32.9 Major depressive disorder, single episode, unspecified; Z87.891 Personal history of nicotine dependence; Z85.41 Personal history of malignant neoplasm of cervix uteri; Z68.42 Body mass index [BMI] 45.0-49.9, adult ==